=== PATIENT | male | born 1960 | race Caucasian/White ===

== ENCOUNTER 2019-01-04 11:07 | Emergency (ER) | payer MEDICAID ==
--- NOTE | 2019-01-04 11:19 | EDM.PDOC ---
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 (NEGATIVE) Urine RBC /HPF Urine WBC /HPF Ur Epithelial Cells /LPF Urine Bacteria (NONE TO FEW) /HPF 01/04/19 Range/Units 11:30 WBC (4.0-10.2) K/uL RBC (4.33-5.41) M/uL Hgb (13.1-16.8) g/dL Hct (39.0-49.0) % MCV (84.0-98.0) fL MCH (28.2-33.3) pg MCHC (31.7-36.0) g/dL RDW (11.2-14.1) % Plt Count (150-350) K/uL Neut % (Auto) (45.0-80.0) % Lymph % (Auto) (10.0-50.0) % Loving % (Auto) (2.0-14.0) % Eos % (Auto) (0.0-5.0) % Baso % (Auto) (0.0-2.0) % Neut # (Auto) (1.40-7.00) K/uL Lymph # (Auto) (0.50-3.50) K/uL Loving # (Auto) (0.00-1.00) K/uL Eos # (Auto) (0.00-0.50) K/uL Baso # (Auto) (0.00-0.20) K/uL PT (9.5-12.0) SEC INR APTT (21.0-31.3) SEC D-Dimer, Quantitative (0-400) ng/mL Sodium (136-145) mmol/L Potassium (3.5-5.1) mmol/L Chloride (98-107) mmol/L Carbon Dioxide (21.0-32.0) mmol/L BUN (7-18) mg/dL Creatinine (0.51-1.17) mg/dL Est Cr Clr Drug Dosing mL/min Estimated GFR (MDRD) mL/min Glucose (74-106) mg/dL Lactic Acid (0.4-2.0) mmol/L Uric Acid (2.6-7.2) mg/dL Calcium (8.5-10.1) mg/dL Magnesium (1.8-2.4) mg/dL Total Bilirubin 1.3 H (0.2-1.0) mg/dL Direct Bilirubin 0.2 (0.0-0.2) mg/dL Indirect Bilirubin 1.1 AST (15-37) U/L ALT (12-78) U/L Alkaline Phosphatase (46-116) IU/L Creatine Kinase (26-308) U/L Creatine Kinase Index (0.0-2.5) % CK-MB (CK-2) (0.00-3.60) ng/mL Troponin I (0.000-0.056) ng/mL NT-Pro-B Natriuret Pep (0-125) pg/mL Total Protein (6.4-8.2) g/dL Albumin (3.4-5.0) g/dL TSH, Ultra Sensitive (0.358-3.740) mIU/mL Specimen Type Urine Color Urine Appearance Urine pH (5.0-9.0) Ur Specific Douglas (1.005-1.030) Urine Protein (NEGATIVE) mg/dL Urine Glucose (UA) (NEGATIVE) mg/dL Urine Ketones (NEGATIVE) mg/dL Urine Occult Blood (NEGATIVE) Urine Nitrite (NEGATIVE) Urine Bilirubin (NEGATIVE) Urine Urobilinogen (0.2-1.0) E.U./dL Ur Leukocyte Esterase (NEGATIVE) Urine RBC /HPF Urine WBC /HPF Ur Epithelial Cells /LPF Urine Bacteria (NONE TO FEW) /HPF Urine specimen set up for culture and sensitivity Meds: Medications Generic Name Dose Route Start Last Admin Trade Name Ewa PRN Reason Stop Dose Admin Sodium Chloride 10 ml 01/04/19 11:20 01/04/19 13:24 Saline Flush FLUSH 10 ml ASDIRECTED PRN Administration Keep Vein Open Discontinued Medications Generic Name Dose Route Start Last Admin Trade Name Ewa PRN Reason Stop Dose Admin Al Hydroxide/Mg Hydroxide 30 ml 01/04/19 13:11 01/04/19 13:15 Gi Cocktail PO 01/04/19 13:12 30 ml ONETIME ONE Administration Aspirin 162 mg 01/04/19 11:56 01/04/19 12:19 Aspirin CHEW 01/04/19 11:57 162 mg ONETIME ONE Administration Famotidine 40 mg 01/04/19 11:20 01/04/19 11:37 Pepcid IVPUSH 01/04/19 11:21 40 mg ONETIME ONE Administration Fentanyl 100 mcg 01/04/19 13:21 01/04/19 13:25 Sublimaze IVPUSH 01/04/19 13:22 50 mcg ONETIME ONE Administration Iopamidol 100 ml 01/04/19 12:27 01/04/19 13:52 Isovue-300 (61%) IVPUSH 01/04/19 12:28 100 ml ONETIME ONE Administration Iopamidol Confirm 01/04/19 12:36 01/04/19 13:52 Isovue-300 (61%) Administered 01/04/19 12:37 100 ml Dose Administration 100 ml .ROUTE .STK-MED ONE Metoprolol Tartrate 2.5 mg 01/04/19 11:20 01/04/19 11:37 Lopressor IVPUSH 01/04/19 11:21 2.5 mg ONETIME ONE Administration Morphine Sulfate 2 mg 01/04/19 11:39 01/04/19 11:42 Morphine IVPUSH 01/04/19 11:40 2 mg ONETIME ONE Administration Morphine Sulfate 2 mg 01/04/19 12:24 01/04/19 12:29 Morphine IVPUSH 01/04/19 12:25 2 mg ONETIME ONE Administration Ondansetron HCl 4 mg 01/04/19 11:39 01/04/19 11:42 Zofran IVPUSH 01/04/19 11:40 4 mg ONETIME ONE Administration Ticagrelor 180 mg 01/04/19 11:56 01/04/19 12:19 Brilinta PO 01/04/19 11:57 180 mg ONETIME ONE Administration - Radiology Interpretation Free Text/Narrative:: personnel monitor shows initial normal sinus rhythm with heart rate in the 80s with improvement to the 70s to 80s after IV Lopressor therapy as below. Chest x-ray, portable, shows somewhat poor inspiratory film with moderate COPD changes but no cardiomegaly, thoracic aneurysm, pulmonary infiltrates or pneumothorax. Note mild aortic valve calcification and status post medial sternotomy with probable pulmonary hypertension and/or mild centralized CHF. Despite previous request a preliminary verbal report of CTA of the chest was not received from the radiologist at [facility]. Written report indicates no evidence of PE or thoracic aortic dissection. Departure - Departure Time of Disposition: 15:05 Disposition: DC/Tfer to Acute Hospital 02 Reason for Transfer *Q: Other (Cardiology consultation as below) Condition: Fair Clinical Impression: D-dimer, elevated, Hyperbilirubinemia, Mixed anxiety depressive disorder, Tobacco abuse counseling Gastroesophageal reflux disease Qualifiers: Esophagitis presence: without esophagitis Qualified Code(s): K21.9 - Gastro- esophageal reflux disease without esophagitis Chest pain Qualifiers: Chest pain type: unspecified Qualified Code(s): R07.9 - Chest pain, unspecified Osteoarthritis Qualifiers: Osteoarthritis location: multiple joints Osteoarthritis type: primary Qualified Code(s): M15.0 - Primary generalized (osteo)arthritis Aortic valve stenosis Qualifiers: Cardiac valve disease etiology: nonrheumatic Qualified Code(s): I35.0 - Nonrheumatic aortic (valve) stenosis Hypertension Qualifiers: Hypertension type: essential hypertension Qualified Code(s): I10 - Essential ( primary) hypertension Hyperlipidemia Qualifiers: Hyperlipidemia type: unspecified Qualified Code(s): E78.5 - Hyperlipidemia, unspecified COPD (chronic obstructive pulmonary disease) Qualifiers: COPD type: emphysema Emphysema type: panlobular Qualified Code(s): J43.1 - Panlobular emphysema Referrals: Peg Abdalla PA-C [Primary Care Provider] - Forms: ED Department Discharge, Interfacility Transfer EMTALA - Problem List & Annotations (1) Chest pain SNOMED Code(s): 04834520 Code(s): R07.9 - CHEST PAIN, UNSPECIFIED Status: Acute Priority: High Current Visit: Yes Onset Date: 01/03/19 Annotation/Comment:: Chest pain protocol initiated immediately upon patient's arrival to the emergency room. Patient initially said that he was on Coumadin, however our review of his records indicates that he is only on aspirin and Plavix. He did take 162 mg of aspirin this morning and his Plavix as above. He did require IV morphine for pain control with IV Zofran given as nausea prophylaxis. History of valvular disease and possible aortic dissection with CTA of the chest results as above. Note mild BNP elevation with patient previously having a history of this problem with otherwise normal cardiac enzymes and no clinical evidence of significant CHF. EKG 2 and cardiac enzymes are otherwise normal. Telephone consultation at 14:[address] Stokes, forest science professor, and Dr. Dillard, hospitalist, both at [facility] in [place], who did accept the patient for direct admission. No further treatment recommendations given. They are in agreement not to initiate IV nitroglycerin infusion or IV heparin at this time. Note aggressive medical therapy as above with improved somewhat unstable angina. Ambulance transfer with ultrasound specialist accompaniment. Qualifiers: Chest pain type: unspecified Qualified Code(s): R07.9 - Chest pain, unspecified (2) Aortic valve stenosis SNOMED Code(s): 93384745 Code(s): I35.0 - NONRHEUMATIC AORTIC (VALVE) STENOSIS Status: Chronic Priority: High Current Visit: Yes Annotation/Comment:: Status post porcine aortic valve replacement and possible concomitant proximal thoracic aortic aneurysm repair as above. Echocardiogram had been scheduled for earlier this morning, however patient did miss this appointment secondary to his current symptoms and ER evaluation. Qualifiers: Cardiac valve disease etiology: nonrheumatic Qualified Code(s): I35.0 - Nonrheumatic aortic (valve) stenosis (3) D-dimer, elevated SNOMED Code(s): 650626844 Code(s): R79.89 - OTHER SPECIFIED ABNORMAL FINDINGS OF BLOOD CHEMISTRY Status: Acute Priority: High Current Visit: Yes Onset Date: 01/04/19 Annotation/Comment:: Note previous history of d-dimer elevation with previous negative workup as above. CTA of the chest results today as above. (4) Gastroesophageal reflux disease SNOMED Code(s): 869519068 Code(s): K21.9 - GASTRO-ESOPHAGEAL REFLUX DISEASE WITHOUT ESOPHAGITIS Status: Chronic Priority: Medium Current Visit: Yes Annotation/Comment:: High-dose IV Pepcid given as GI prophylaxis. Additional GI cocktail was required with overall good results. Otherwise previously stable by history despite recent initiation of Toradol for left elbow bursitis on 01/03. Qualifiers: Esophagitis presence: without esophagitis Qualified Code(s): K21.9 - Gastro -esophageal reflux disease without esophagitis (5) Hyperbilirubinemia SNOMED Code(s): 77212642 Code(s): E80.6 - OTHER DISORDERS OF BILIRUBIN METABOLISM Status: Acute Priority: Medium Current Visit: Yes Onset Date: 01/04/19 Annotation/ Comment:: Note history of laparoscopic cholecystectomy as above. Direct and indirect bilirubin results were normal as above. (6) Hyperlipidemia SNOMED Code(s): 40787745 Code(s): E78.5 - HYPERLIPIDEMIA, UNSPECIFIED Status: Chronic Priority: Medium Current Visit: Yes Annotation/Comment:: Previous lipid panel in October with repeat lipid panel advisable. Qualifiers: Hyperlipidemia type: unspecified Qualified Code(s): E78.5 - Hyperlipidemia , unspecified (7) Hypertension SNOMED Code(s): 01830229 Code(s): I10 - ESSENTIAL (PRIMARY) HYPERTENSION Status: Chronic Priority : Medium Current Visit: Yes Annotation/Comment:: Overall stable in the emergency room with IV Lopressor given on his arrival as per chest pain protocol. Qualifiers: Hypertension type: essential hypertension Qualified Code(s): I10 - Essential (primary) hypertension (8) Mixed anxiety depressive disorder SNOMED Code(s): 153120030 Code(s): F41.8 - OTHER SPECIFIED ANXIETY DISORDERS Status: Chronic Priority: Medium Current Visit: Yes Annotation/Comment:: Mild to moderate control based on today's evaluation. No current medical therapy. Continue to observe closely by his regular provider. (9) Osteoarthritis SNOMED Code(s): 579524074 Code(s): M19.90 - UNSPECIFIED OSTEOARTHRITIS, UNSPECIFIED SITE Status: Chronic Priority: Medium Current Visit: Yes Annotation/Comment:: Recent left-sided olecranon bursitis with initiation of Toradol on 01/03. Qualifiers: Osteoarthritis location: multiple joints Osteoarthritis type: primary Qualified Code(s): M15.0 - Primary generalized (osteo)arthritis (10) Tobacco abuse counseling SNOMED Code(s): 395653223, 437724689, 002833954 Code(s): Z71.6 - TOBACCO ABUSE COUNSELING Status: Chronic Priority: Medium Current Visit: Yes Annotation/Comment:: Tobacco cessation strongly encouraged with information to be provided at discharge. (11) COPD (chronic obstructive pulmonary disease) SNOMED Code(s): 51997691 Code(s): J44.9 - CHRONIC OBSTRUCTIVE PULMONARY DISEASE, UNSPECIFIED Status : Chronic Current Visit: Yes Annotation/Comment:: COPD by chest x-ray. Consider repeating PFTs depending on his clinical course. Tobacco cessation advisable as above. Qualifiers: COPD type: emphysema Emphysema type: panlobular Qualified Code(s): J43.1 - Panlobular emphysema - Problem List Review Problem List Initiated/Reviewed/Updated: Yes - My Orders Last 24 Hours: My Active Orders 01/04/19 11:20 Cardiac Monitoring [RC] . DIRECTED EKG Documentation Completion [RC] ASDIRECTED Oxygen Therapy, ED [RC] CONTINUOUS Peripheral IV Care [RC] . DIRECTED Pulse Oximetry [RC] CONTINUOUS Up With Assistance [RC] PFP Vital Signs [RC] PFP Chest 1V Frontal [CR] Stat CULTURE URINE [RM] Routine Sodium Chloride 0.9% [Saline Flush] 10 ml FLUSH ASDIRECTED PRN Obtain Past Medical Record [OM.PC] Urgent Peripheral IV Insertion Adult [OM.PC] Stat Resuscitation Status Stat 01/04/19 12:23 Chest PE [Ang Chest] [CT] Stat 01/04/19 13:03 EKG Documentation Completion [RC] ASDIRECTED 01/04/19 Breakfast Nothing per Oral Now Diet [DIET] - Assessment/Plan Last 24 Hours: My Active Orders 01/04/19 11:20 Cardiac Monitoring [RC] . DIRECTED EKG Documentation Completion [RC] ASDIRECTED Oxygen Therapy, ED [RC] CONTINUOUS Peripheral IV Care [RC] . DIRECTED Pulse Oximetry [RC] CONTINUOUS Up With Assistance [RC] PFP Vital Signs [RC] PFP Chest 1V Frontal [CR] Stat CULTURE URINE [RM] Routine Sodium Chloride 0.9% [Saline Flush] 10 ml FLUSH ASDIRECTED PRN Obtain Past Medical Record [OM.PC] Urgent Peripheral IV Insertion Adult [OM.PC] Stat Resuscitation Status Stat 01/04/19 12:23 Chest PE [Ang Chest] [CT] Stat 01/04/19 13:03 EKG Documentation Completion [RC] ASDIRECTED 01/04/19 Breakfast Nothing per Oral Now Diet [DIET] Assessment:: As above Plan: As above. Extensive precautions were given to the patient, who is in agreement with the treatment plan. NOTE: The patient was previously registered under a false name of MELODIE SEWELL , [birth year]GE 10/22/1958, both at [facility] and [facility] with those records also reviewed today.
[2019-01-04] MEDS ORDERED: Sodium Chloride 0.9% 10 ML Syringe FLUSH PRN (11:20)
[2019-01-04] MEDS ORDERED: Metoprolol Tartrate 5 MG/5 ML SDV IVPUSH ONE (11:20)
[2019-01-04] MEDS ORDERED: Famotidine 20 MG/2 ML SDV IVPUSH ONE (11:20)
[2019-01-04] MEDS ORDERED: Morphine 2 MG/ML Syringe IVPUSH ONE ×2 (11:39→12:24)
[2019-01-04] MEDS ORDERED: Ondansetron 4 MG/2 ML SDV IVPUSH ONE (11:39)
[2019-01-04] MEDS ORDERED: Aspirin 81 MG Tab.Chew CHEW ONE (11:56)
[2019-01-04] MEDS ORDERED: Ticagrelor 90 MG Tab PO ONE (11:56)
[2019-01-04 12:07] LABS: CHLORIDE,CL 100 mmol/L (98-107); SODIUM,NA 137 mmol/L (136-145)
[2019-01-04] MEDS ORDERED: Iopamidol 612 MG/ML 100 ML Bottle IVPUSH ONE (12:27)
[2019-01-04] MEDS ORDERED: Iopamidol 612 MG/ML 100 ML Bottle ONE (12:36)
[2019-01-04] MEDS ORDERED: GI Cocktail Oral Solution 30 ML PO ONE (13:11)
[2019-01-04] MEDS ORDERED: fentaNYL 100 MCG/2 ML SDV IVPUSH ONE (13:21)
== END 2019-01-04 15:05 ==
LOC: LL.ED 11:07
DX: I35.0 Nonrheumatic aortic (valve) stenosis (principal); R79.1 Abnormal coagulation profile; E80.6 Other disorders of bilirubin metabolism; F41.8 Other specified anxiety disorders; K21.9 Gastro-esophageal reflux disease without esophagitis; M15.0 Primary generalized (osteo)arthritis; E78.5 Hyperlipidemia, unspecified; J43.1 Panlobular emphysema; I10 Essential (primary) hypertension; F17.210 Nicotine dependence, cigarettes, uncomplicated; Z88.8 Allergy status to other drugs, medicaments and biological substances; Z88.0 Allergy status to penicillin; Z71.6 Tobacco abuse counseling
CPT/HCPCS: 36415; 71045; 71275; 80053; 81001; 82247; 82248; 82550; 82553; 83605; 83735; 83880; 84443; 84484; 84550; 85025; 85379; 85610; 85730; 87086; 93005; 96374; 96375; 96376; 99285-25; A9270-GY; J2270; J2405; J3010; J3490; Q9967

== ENCOUNTER 2019-01-11 14:27 | Emergency (ER) | payer MEDICAID ==
[2019-01-11] MEDS ORDERED: Famotidine 20 MG/2 ML SDV IVPUSH ONE (14:39)
[2019-01-11] MEDS ORDERED: Ticagrelor 90 MG Tab PO ONE (14:39)
[2019-01-11] MEDS ORDERED: Aspirin 81 MG Tab.Chew CHEW ONE (14:39)
[2019-01-11] MEDS ORDERED: Metoprolol Tartrate 5 MG/5 ML SDV IVPUSH ONE (14:39)
--- NOTE | 2019-01-11 14:39 | EDM.PDOC ---
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 Route Start Last Admin Trade Name Freq PRN Reason Stop Dose Admin Sodium Chloride 10 ml 01/11/19 14:39 01/11/19 15:13 Saline Flush FLUSH 10 ml ASDIRECTED PRN Administration Keep Vein Open Discontinued Medications Generic Name Dose Route Start Last Admin Trade Name Freq PRN Reason Stop Dose Admin Aspirin 324 mg 01/11/19 14:39 01/11/19 14:44 Aspirin CHEW 01/11/19 14:40 324 mg ONETIME ONE Administration Famotidine 40 mg 01/11/19 14:39 01/11/19 14:47 Pepcid IVPUSH 01/11/19 14:40 40 mg ONETIME ONE Administration Fentanyl 100 mcg 01/11/19 16:30 01/11/19 16:37 Sublimaze IVPUSH 01/11/19 16:31 100 mcg ONETIME ONE Administration Metoprolol Tartrate 2.5 mg 01/11/19 14:39 01/11/19 14:46 Lopressor IVPUSH 01/11/19 14:40 2.5 mg ONETIME ONE Administration Morphine Sulfate 2 mg 01/11/19 15:08 01/11/19 15:11 Morphine IVPUSH 01/11/19 15:09 2 mg ONETIME ONE Administration Ondansetron HCl 4 mg 01/11/19 15:08 01/11/19 15:11 Zofran IVPUSH 01/11/19 15:09 4 mg ONETIME ONE Administration Ticagrelor 180 mg 01/11/19 14:39 01/11/19 14:45 Brilinta PO 01/11/19 14:40 180 mg ONETIME ONE Administration - Radiology Interpretation Free Text/Narrative:: teller head showed initial sinus rhythm in the 80s with improvement to 60s to 70s after IV Lopressor was given. No ectopy or arrhythmia. Chest x-ray, portable, shows evidence of moderate COPD changes with status post medial sternotomy with mild calcification of his prosthetic aortic valve. Mild borderline pulmonary hypertension versus borderline centralized CHF with no pneumothorax or pulmonary infiltrates. Telephone consultation at 15:27 hours with the radiology department at [facility]. Preliminary verbal report of noncontrast CT scan of the head negative for any acute ischemic changes. CT Results Date: 01/11/19 CT Results Time: 15:27 Departure - Departure Time of Disposition: 17:40 Disposition: DC/Tfer to Acute Hospital 02 Reason for Transfer *Q: Other (Cardiology consultation on arrival) Condition: Fair Clinical Impression: Mixed anxiety depressive disorder, D-dimer, elevated, Tobacco abuse counseling COPD (chronic obstructive pulmonary disease) Qualifiers: COPD type: emphysema Emphysema type: panlobular Qualified Code(s): J43.1 - Panlobular emphysema Hypertension Qualifiers: Hypertension type: essential hypertension Qualified Code(s): I10 - Essential ( primary) hypertension Chest pain Qualifiers: Chest pain type: unspecified Qualified Code(s): R07.9 - Chest pain, unspecified Osteoarthritis Qualifiers: Osteoarthritis location: multiple joints Osteoarthritis type: primary Qualified Code(s): M15.0 - Primary generalized (osteo)arthritis Gastroesophageal reflux disease Qualifiers: Esophagitis presence: without esophagitis Qualified Code(s): K21.9 - Gastro- esophageal reflux disease without esophagitis Syncope Qualifiers: Syncope type: unspecified Qualified Code(s): R55 - Syncope and collapse Migraine headache Qualifiers: Migraine type: without aura Status migrainosus presence: without status migrainosus Intractability: not intractable Qualified Code(s): G43.009 - Migraine without aura, not intractable, without status migrainosus Instructions: Syncope, [id number] Referrals: Peg Abdalla PA-C [Primary Care Provider] - Forms: ED Department Discharge, Interfacility Transfer EMTALA - Problem List & Annotations (1) Chest pain SNOMED Code(s): 16651825 Code(s): R07.9 - CHEST PAIN, UNSPECIFIED Status: Acute Priority: High Current Visit: Yes Onset Date: 01/03/19 Annotation/Comment:: Chest pain protocol initiated immediately upon patient's arrival to the emergency room. Note patient was evaluated in this facility for similar type symptoms on with subsequent transfer to [facility] with cardiac workup as above. Patient did refuse recommended Cardiolite stress test at that time. He did require IV morphine and IV fentanyl for pain control with IV Zofran given as nausea prophylaxis. History of valvular disease and severe aortic valve stenosis and porcine aortic valve replacement as above with mild to moderate perivalvular insufficiency noted by recent echocardiogram on 01/04. Note stable mild BNP elevation with patient previously having a history of this problem with otherwise normal cardiac enzymes, EKG, etc. and no clinical evidence of significant CHF. Initial telephone consultation with [facility] in [place] at 16:10 hours with subsequent additional telephone consultation with Dr. Dillard, hospitalist, who does accept patient for direct admission and further cardiology and/or neurology consultation, with no further treatment recommendations given. Ambulance transfer with interpretative dancer accompaniment. Patient now does agree to recommended Cardiolite stress test. Qualifiers: Chest pain type: unspecified Qualified Code(s): R07.9 - Chest pain, unspecified (2) Syncope SNOMED Code(s): 940137851 Code(s): R55 - SYNCOPE AND COLLAPSE Status: Acute Priority: High Current Visit: Yes Onset Date: 01/11/19 Annotation/Comment:: History of recurrent syncope as above. Negative neurological findings and CT of the head results from today. Cardiology consultation/workup is advisable as above with possible further neurology consultation for tilt table test, EEG, etc. No direct evidence of seizure activity today with prolactin level drawn with results pending. Qualifiers: Syncope type: unspecified Qualified Code(s): R55 - Syncope and collapse (3) Gastroesophageal reflux disease SNOMED Code(s): 840555126 Code(s): K21.9 - GASTRO-ESOPHAGEAL REFLUX DISEASE WITHOUT ESOPHAGITIS Status: Chronic Priority: Medium Current Visit: Yes Annotation/Comment:: High-dose IV Pepcid given as GI prophylaxis. No recent true abdominal pain or GI type symptoms. Continue to observe closely by his regular provider. Qualifiers: Esophagitis presence: without esophagitis Qualified Code(s): K21.9 - Gastro -esophageal reflux disease without esophagitis (4) D-dimer, elevated SNOMED Code(s): 551547875 Code(s): R79.89 - OTHER SPECIFIED ABNORMAL FINDINGS OF BLOOD CHEMISTRY Status: Acute Priority: High Current Visit: Yes Onset Date: 01/04/19 Annotation/Comment:: Note previous history of d-dimer elevation with previous negative workup as above. CTA of the chest results from 01/04/19 were once again reviewed with negative findings for PE or aortic valve dissection. Consider venous Doppler studies of the lower extremities. (5) Osteoarthritis SNOMED Code(s): 982148623 Code(s): M19.90 - UNSPECIFIED OSTEOARTHRITIS, UNSPECIFIED SITE Status: Chronic Priority: Medium Current Visit: Yes Annotation/Comment:: Recent left-sided olecranon bursitis with initiation of Toradol on 01/03 with nonspecific chronic bilateral shoulder pain, etc. Qualifiers: Osteoarthritis location: multiple joints Osteoarthritis type: primary Qualified Code(s): M15.0 - Primary generalized (osteo)arthritis (6) Mixed anxiety depressive disorder SNOMED Code(s): 519500236 Code(s): F41.8 - OTHER SPECIFIED ANXIETY DISORDERS Status: Chronic Priority: Medium Current Visit: Yes Annotation/Comment:: Mild to moderate control based on today's evaluation. No current medical therapy. Continue to observe closely by his regular provider. Medical therapy, counseling, may be advised. (7) Hypertension SNOMED Code(s): 42473995 Code(s): I10 - ESSENTIAL (PRIMARY) HYPERTENSION Status: Chronic Priority : Medium Current Visit: Yes Annotation/Comment:: Overall stable in the emergency room with IV Lopressor given on his arrival as per chest pain protocol. Qualifiers: Hypertension type: essential hypertension Qualified Code(s): I10 - Essential (primary) hypertension (8) Tobacco abuse counseling SNOMED Code(s): 282230472, 389786222, 603102333 Code(s): Z71.6 - TOBACCO ABUSE COUNSELING Status: Chronic Priority: Medium Current Visit: Yes Annotation/Comment:: Tobacco cessation once again strongly encouraged with information to be provided at discharge. (9) Aortic valve stenosis SNOMED Code(s): 79029546 Code(s): I35.0 - NONRHEUMATIC AORTIC (VALVE) STENOSIS Status: Chronic Priority: High Current Visit: Yes Annotation/Comment:: As above with recent echocardiogram on 01/04/19 dictating perivalvular insufficiency.. Status post porcine aortic valve replacement and possible concomitant proximal thoracic aortic aneurysm repair as above. Qualifiers: Cardiac valve disease etiology: nonrheumatic Qualified Code(s): I35.0 - Nonrheumatic aortic (valve) stenosis (10) COPD (chronic obstructive pulmonary disease) SNOMED Code(s): 76613178 Code(s): J44.9 - CHRONIC OBSTRUCTIVE PULMONARY DISEASE, UNSPECIFIED Status : Chronic Current Visit: Yes Annotation/Comment:: COPD by chest x-ray. Consider repeating PFTs depending on his clinical course. Tobacco cessation advisable as above. Qualifiers: COPD type: emphysema Emphysema type: panlobular Qualified Code(s): J43.1 - Panlobular emphysema - Problem List Review Problem List Initiated/Reviewed/Updated: Yes - My Orders Last 24 Hours: My Active Orders 01/11/19 14:39 Cardiac Monitoring [RC] . DIRECTED EKG Documentation Completion [RC] ASDIRECTED Oxygen Therapy, ED [RC] PRN Peripheral IV Care [RC] . DIRECTED Pulse Oximetry [RC] CONTINUOUS Up With Assistance [RC] PFP Vital Signs [RC] PFP Chest 1V Frontal [CR] Stat Sodium Chloride 0.9% [Saline Flush] 10 ml FLUSH ASDIRECTED PRN Obtain Past Medical Record [OM.PC] Urgent Peripheral IV Insertion Adult [OM.PC] Stat Resuscitation Status Stat 01/11/19 14:46 PROLACTIN [REF] Stat 01/11/19 14:50 Head wo Cont [CT] Stat 01/11/19 16:15 CULTURE URINE [RM] Routine 01/11/19 Breakfast Nothing per Oral Now Diet [DIET] - Assessment/Plan Last 24 Hours: My Active Orders 01/11/19 14:39 Cardiac Monitoring [RC] . DIRECTED EKG Documentation Completion [RC] ASDIRECTED Oxygen Therapy, ED [RC] PRN Peripheral IV Care [RC] . DIRECTED Pulse Oximetry [RC] CONTINUOUS Up With Assistance [RC] PFP Vital Signs [RC] PFP Chest 1V Frontal [CR] Stat Sodium Chloride 0.9% [Saline Flush] 10 ml FLUSH ASDIRECTED PRN Obtain Past Medical Record [OM.PC] Urgent Peripheral IV Insertion Adult [OM.PC] Stat Resuscitation Status Stat 01/11/19 14:46 PROLACTIN [REF] Stat 01/11/19 14:50 Head wo Cont [CT] Stat 01/11/19 16:15 CULTURE URINE [RM] Routine 01/11/19 Breakfast Nothing per Oral Now Diet [DIET] Assessment:: As above. Plan: As above. Ambulance transfer as above.
[2019-01-11] MEDS: Sodium Chloride 0.9% 10 ML Syringe FLUSH PRN ×4 (14:48→15:13)
[2019-01-11] MEDS ORDERED: Morphine 2 MG/ML Syringe IVPUSH ONE (15:08)
[2019-01-11] MEDS ORDERED: Ondansetron 4 MG/2 ML SDV IVPUSH ONE (15:08)
[2019-01-11 16:04] LABS: CHLORIDE,CL 97 mmol/L (98-107); SODIUM,NA 133 mmol/L (136-145)
[2019-01-11] MEDS ORDERED: fentaNYL 100 MCG/2 ML SDV IVPUSH ONE (16:30)
== END 2019-01-11 17:40 ==
LOC: LL.ED 14:27
DX: R55 Syncope and collapse (principal); G43.009 Migraine without aura, not intractable, without status migrainosus; R07.9 Chest pain, unspecified; M15.0 Primary generalized (osteo)arthritis; K21.9 Gastro-esophageal reflux disease without esophagitis; F41.8 Other specified anxiety disorders; R79.1 Abnormal coagulation profile; J43.1 Panlobular emphysema; Z71.6 Tobacco abuse counseling; I10 Essential (primary) hypertension; F17.210 Nicotine dependence, cigarettes, uncomplicated; Z88.0 Allergy status to penicillin; Z88.6 Allergy status to analgesic agent; Z88.8 Allergy status to other drugs, medicaments and biological substances; Z79.82 Long term (current) use of aspirin; Z79.899 Other long term (current) drug therapy
CPT/HCPCS: 36415; 70450; 71045; 80053; 81001; 82550; 82553; 83605; 83735; 83880; 84146; 84443; 84484; 84550; 85025; 85379; 85610; 85730; 87086; 93005; 96374; 96375; 99285-25; A9270-GY; J2270; J2405; J3010; J3490

== ENCOUNTER 2019-01-20 14:19 | Emergency (ER) | payer MEDICAID ==
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
== END 2019-01-20 15:35 | disposition home or self-care (01) ==
LOC: LL.ED 14:19
DX: R07.89 Other chest pain (principal); J44.9 Chronic obstructive pulmonary disease, unspecified; Z88.0 Allergy status to penicillin; Z88.8 Allergy status to other drugs, medicaments and biological substances; Z79.82 Long term (current) use of aspirin; Z79.899 Other long term (current) drug therapy
CPT/HCPCS: 99284

== ENCOUNTER 2019-12-18 17:15 | Inpatient (IN) | payer MEDICAID ==
[2019-12-18] MEDS ORDERED: Sodium Chloride 0.9% 10 ML Syringe FLUSH PRN (17:24)
--- NOTE | 2019-12-18 17:24 | EDM.PDOC ---
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 Departure - Departure Time of Disposition: 20:05 Disposition: Admitted As Inpatient 66 Condition: Fair Clinical Impression: COPD (chronic obstructive pulmonary disease), Gastroesophageal reflux disease, Hypertension, Osteoarthritis, Tobacco abuse counseling, Mixed anxiety depressive disorder, Hyperlipidemia, D-dimer, elevated, Chest pain, Complete left bundle branch block (LBBB), PVC's (premature ventricular contractions), Hypokalemia, CHF (congestive heart failure) - Discharge Information *PRESCRIPTION DRUG MONITORING PROGRAM REVIEWED*: Not Applicable *COPY OF PRESCRIPTION DRUG MONITORING REPORT IN PATIENT YANELY: Not Applicable Referrals: PCP,Unknown [Primary Care Provider] - Forms: ED Department Discharge Care Plan Goals: See plan Sepsis Event Note - Focused Exam Vital Signs: Vital Signs Temp Pulse Resp BP Pulse Ox Pulse Ox 12/18/19 18:47 91 22 H 98 12/18/19 18:38 88 18 124/88 98 12/18/19 18:17 90 21 H 129/72 99 12/18/19 17:53 94 25 H 127/78 98 12/18/19 17:40 37.0 C 97 23 H 148/77 H 98 12/18/19 17:24 99 12/18/19 17:17 98 24 H 147/77 H 98 Date Exam was Performed: 12/18/19 Time Exam was Performed: 20:26 - Problem List & Annotations (1) Chest pain SNOMED Code(s): 74720686 Code(s): R07.9 - CHEST PAIN, UNSPECIFIED Status: Acute Priority: High Current Visit: Yes Onset Date: 12/18/19 Annotation/Comment:: Chest pain protocol initiated upon patient's arrival to the emergency room. Note patient was evaluated in this facility for similar type symptoms on 01/11/19 and 01/04/19 with subsequent transfer to [facility] with cardiac workup as above. Patient did refuse recommended Cardiolite stress test at those times. History of valvular disease and severe aortic valve stenosis and porcine aortic valve replacement as above with mild to moderate perivalvular insufficiency noted by recent echocardiogram on 01/04. Note mild BNP elevation and clinical evidence of mild CHF with IV Lasix therapy initiated in the emergency room. Note recent echocardiogram on 12/14/19. Initiate standard rule out [place] orders with further cardiology consultation depending on his clinical course. Symptoms today are somewhat atypical, however. Qualifiers: Chest pain type: unspecified Qualified Code(s): R07.9 - Chest pain, unspecified (2) CHF (congestive heart failure) SNOMED Code(s): 08967443 Code(s): I50.9 - HEART FAILURE, UNSPECIFIED Status: Acute Priority: High Current Visit: Yes Annotation/Comment:: As above Qualifiers: Heart failure type: combined systolic and diastolic Heart failure chronicity: acute on chronic Qualified Code(s): I50.43 - Acute on chronic combined systolic (congestive) and diastolic (congestive) heart failure (3) D-dimer, elevated SNOMED Code(s): 079631362 Code(s): R79.89 - OTHER SPECIFIED ABNORMAL FINDINGS OF BLOOD CHEMISTRY Status: Acute Priority: High Current Visit: Yes Onset Date: 01/04/19 Annotation/Comment:: Known previous d-dimer elevation with negative workup as above. Repeat venous Doppler studies in the a.m.. Observe for now. (4) COPD (chronic obstructive pulmonary disease) SNOMED Code(s): 88230946 Code(s): J44.9 - CHRONIC OBSTRUCTIVE PULMONARY DISEASE, UNSPECIFIED Status : Chronic Current Visit: Yes Annotation/Comment:: COPD by chest x-ray with nonproductive cough and hemoptysis as above. No fever or leukocytosis. Delay initiation of antibiotic therapy for now. Consider repeating PFTs depending on his clinical course. Tobacco cessation advisable as above. Qualifiers: COPD type: emphysema Emphysema type: panlobular Qualified Code(s): J43.1 - Panlobular emphysema (5) Gastroesophageal reflux disease SNOMED Code(s): 256687664 Code(s): K21.9 - GASTRO-ESOPHAGEAL REFLUX DISEASE WITHOUT ESOPHAGITIS Status: Chronic Priority: Medium Current Visit: Yes Annotation/Comment:: High-dose IV Pepcid given as GI prophylaxis. No evidence of GI bleed, etc. Qualifiers: Esophagitis presence: without esophagitis Qualified Code(s): K21.9 - Gastro -esophageal reflux disease without esophagitis (6) Hyperlipidemia SNOMED Code(s): 18595003 Code(s): E78.5 - HYPERLIPIDEMIA, UNSPECIFIED Status: Chronic Priority: Medium Current Visit: Yes Annotation/Comment:: Lipid profile and glycosylated hemoglobin to be conducted in the a.m. Note history of fatty liver. Weight in moderation advisable. Qualifiers: Hyperlipidemia type: unspecified Qualified Code(s): E78.5 - Hyperlipidemia , unspecified (7) Hypertension SNOMED Code(s): 04299990 Code(s): I10 - ESSENTIAL (PRIMARY) HYPERTENSION Status: Chronic Priority : Medium Current Visit: Yes Annotation/Comment:: Overall stable in the emergency room with IV Lopressor given on his arrival as per chest pain protocol. Qualifiers: Hypertension type: essential hypertension Qualified Code(s): I10 - Essential (primary) hypertension (8) Mixed anxiety depressive disorder SNOMED Code(s): 286503680 Code(s): F41.8 - OTHER SPECIFIED ANXIETY DISORDERS Status: Chronic Priority: Medium Current Visit: Yes Annotation/Comment:: Moderate control based on today's evaluation. No current medical therapy. Continue to observe closely by his regular provider. Medical therapy, counseling, may be advised. (9) Osteoarthritis SNOMED Code(s): 169372276 Code(s): M19.90 - UNSPECIFIED OSTEOARTHRITIS, UNSPECIFIED SITE Status: Chronic Priority: Medium Current Visit: Yes Annotation/Comment:: Stable by history. Qualifiers: Osteoarthritis location: multiple joints Osteoarthritis type: primary Qualified Code(s): M15.0 - Primary generalized (osteo)arthritis (10) Tobacco abuse counseling SNOMED Code(s): 065603467, 062217077, 851700397 Code(s): Z71.6 - TOBACCO ABUSE COUNSELING Status: Chronic Priority: Medium Current Visit: Yes Annotation/Comment:: Tobacco cessation once again strongly encouraged with information to be provided at discharge. (11) Complete left bundle branch block (LBBB) SNOMED Code(s): 6132828 Code(s): I44.7 - LEFT BUNDLE-BRANCH BLOCK, UNSPECIFIED Status: Chronic Priority: Medium Current Visit: Yes Annotation/Comment:: Observe for now. (12) Hypokalemia SNOMED Code(s): 15706449 Code(s): E87.6 - HYPOKALEMIA Status: Acute Priority: Medium Current Visit: Yes Onset Date: 12/18/19 Annotation/Comment:: Potassium chloride orally initiated in the emergency room (13) PVC's (premature ventricular contractions) SNOMED Code(s): 10094400 Code(s): I49.3 - VENTRICULAR PREMATURE DEPOLARIZATION Status: Acute Priority: High Current Visit: Yes Onset Date: 12/18/19 Annotation/Comment: : Note recent event monitor on 11/24/19 with results pending. Observe for now. - Problem List Review Problem List Initiated/Reviewed/Updated: Yes - My Orders Last 24 Hours: My Active Orders 12/18/19 17:24 Cardiac Monitoring [RC] CONTINUOUS Communication Order [RC] ROUTINE Oxygen Therapy, ED [RC] CONTINUOUS Pulse Oximetry [RC] PRN Up With Assistance [RC] ASDIRECTED Chest 2V [CR] Stat CULTURE SPUTUM + SMEAR [RM] Urgent Sodium Chloride 0.9% [Saline Flush] 10 ml FLUSH ASDIRECTED PRN Blood Culture x2 Reflex Set [OM.PC] Stat Obtain Past Medical Record [OM.PC] Stat Peripheral IV Insertion Adult [OM.PC] Stat Resuscitation Status Routine 12/18/19 17:25 EKG Documentation Completion [RC] ASDIRECTED Peripheral IV Care [RC] . DIRECTED 12/18/19 17:30 CULTURE STREP A CONFIRMATION [RM] Stat STREP SCRN A RAPID W CULT CONF [RM] Stat 12/18/19 17:43 CULTURE BLOOD [BC] Stat 12/18/19 18:20 CULTURE BLOOD [BC] Stat 12/18/19 Breakfast Nothing Per Oral Diet [DIET] - Assessment/Plan Admission H&P: Please use this note as an admission H&P Last 24 Hours: My Active Orders 12/18/19 17:24 Cardiac Monitoring [RC] CONTINUOUS Communication Order [RC] ROUTINE Oxygen Therapy, ED [RC] CONTINUOUS Pulse Oximetry [RC] PRN Up With Assistance [RC] ASDIRECTED Chest 2V [CR] Stat CULTURE SPUTUM + SMEAR [RM] Urgent Sodium Chloride 0.9% [Saline Flush] 10 ml FLUSH ASDIRECTED PRN Blood Culture x2 Reflex Set [OM.PC] Stat Obtain Past Medical Record [OM.PC] Stat Peripheral IV Insertion Adult [OM.PC] Stat Resuscitation Status Routine 12/18/19 17:25 EKG Documentation Completion [RC] ASDIRECTED Peripheral IV Care [RC] . DIRECTED 12/18/19 17:30 CULTURE STREP A CONFIRMATION [RM] Stat STREP SCRN A RAPID W CULT CONF [RM] Stat 12/18/19 17:43 CULTURE BLOOD [BC] Stat 12/18/19 18:20 CULTURE BLOOD [BC] Stat 12/18/19 Breakfast Nothing Per Oral Diet [DIET] Assessment:: As above Plan: As above. Extensive precautions were given to the patient, who is in agreement with the treatment plan. The patient will require about 3-4 days of inpatient/ acute care secondary to multiple health problems as above. board certified behavioral analyst physician assumes care in the a.m.
[2019-12-18 18:27] LABS: CHLORIDE,CL 103 mmol/L (98-107); SODIUM,NA 138 mmol/L (136-145)
[2019-12-18] MEDS ORDERED: Famotidine 20 MG/2 ML SDV IVPUSH ONE (18:38)
[2019-12-18] MEDS ORDERED: Aspirin 81 MG Tab.Chew CHEW ONE (18:39)
[2019-12-18] MEDS ORDERED: Furosemide 40 MG/4 ML VIAL IVPUSH ONE (18:39)
[2019-12-18] MEDS ORDERED: Ticagrelor 90 MG Tab PO ONE (18:39)
[2019-12-18] MEDS ORDERED: Potassium Chloride 20 MEQ Tab.ER PO ONE (18:40)
[2019-12-18 18:42] LABS: PTT,PARTIAL THROMBOPLSTIN TIME 24.6 SEC (21.0-31.3)
[2019-12-18] MEDS ORDERED: Famotidine 20 MG/2 ML SDV ONE (18:46)
[2019-12-18] MEDS ORDERED: Temazepam 15 MG Cap PO PRN (21:52)
[2019-12-18] MEDS ORDERED: Acetaminophen 325 MG Tab PO PRN (21:52)
[2019-12-18] MEDS: Enoxaparin 40 MG/0.4 ML Syringe SUBCUT SCH (23:52)
[2019-12-19] MEDS: Furosemide 40 MG/4 ML VIAL IVPUSH SCH ×2 (03:53→12:40)
[2019-12-19] MEDS: Sodium Chloride 0.9% 10 ML Syringe FLUSH PRN ×2 (03:57→21:30)
[2019-12-19] MEDS ORDERED: Diphtheria,Pertussis(Acell),Tetanus Vaccine 0.5 ML SDV IM ONE ×2 (04:08→11:00)
[2019-12-19] MEDS: Metoprolol Tartrate 50 MG Tab PO SCH ×2 (07:12→21:26)
[2019-12-19] MEDS: Lisinopril 20 MG Tab PO SCH (07:12)
[2019-12-19] MEDS: Clopidogrel 75 MG Tab PO SCH (07:12)
[2019-12-19] MEDS: Aspirin 325 MG Tab.EC PO SCH (07:12)
[2019-12-19] MEDS: Potassium Chloride 20 MEQ Tab.ER PO SCH ×3 (07:13→21:25)
[2019-12-19 08:12] LABS: HEMOGLOBIN A1C 5.7 % (4.3-5.7)
[2019-12-19 08:14] LABS: CHLORIDE,CL 102 mmol/L (98-107); SODIUM,NA 139 mmol/L (136-145)
--- NOTE | 2019-12-19 14:00 | PCM.DCSUM1 ---
Discharge Summary - Hospital Course Free Text/Narrative:: Pt admitted with intermittent chronic chest pain See H and P Brief History: Pt work up has been negative See Lab and Xray report to include US Diagnosis: Stroke: No - Discharge Data Discharge Date: 12/19/19 Discharge Disposition: Home, Self-Care 01 Condition: Good - Referral to Home Health Primary Care Physician: PCP Unknown - Discharge Diagnosis/Problem(s) (1) Chest pain SNOMED Code(s): 17362732 ICD Code: R07.9 - CHEST PAIN, UNSPECIFIED Status: Acute Priority: High Current Visit: Yes Onset Date: 12/18/19 Problem Details: Pt had normal Venous Doppler Remained of lab and xray unremarkable Qualifiers: Chest pain type: unspecified Qualified Code(s): R07.9 - Chest pain, unspecified - Patient Instructions Diet: Regular Diet as Tolerated Activity: As Tolerated Driving: May Drive Today Showering/Bathing: May Shower Notify Provider of: Increased Pain Other/Special Instructions: Follow up with clinic provider for recheck in 3 to 5 days for repeat evaluation and repeat lab - Discharge Plan *PRESCRIPTION DRUG MONITORING PROGRAM REVIEWED*: Not Applicable *COPY OF PRESCRIPTION DRUG MONITORING REPORT IN PATIENT YANELY: Not Applicable Home Medications: Home Meds Clopidogrel [Plavix] 1 tab PO DAILY 01/04/19 [History] lisinopriL [Prinivil] 1 tab PO DAILY 01/04/19 [History] Metoprolol Tartrate [Lopressor] 50 mg PO BID 01/11/19 [History] Aspirin [Ecotrin EC] 325 mg PO DAILY 12/18/19 [History] Oxygen Therapy Mode: Room Air Forms: ED Department Discharge Referrals: PCP,Unknown [Primary Care Provider] - - Discharge Summary/Plan Comment DC Time >30 min.: No - General Info Date of Service: 12/19/19 Admission Dx/Problem (Free Text: chest pain Subjective Update: Pt without specific complaint this AM - Review of Systems HEENT: Reports: No Symptoms Pulmonary: Reports: No Symptoms Cardiovascular: Reports: Chest Pain Gastrointestinal: Reports: No Symptoms Genitourinary: Reports: No Symptoms Musculoskeletal: Reports: No Symptoms Neurological: Reports: No Symptoms - Patient Data Vitals - Most Recent: Last Vital Signs Temp 97.3 F 12/19/19 08:00 Pulse 95 12/19/19 08:00 Resp 17 12/19/19 08:00 BP 131/79 03/02/20 08:00 Pulse Ox 100 12/19/19 08:00 Weight - Most Recent: 210 lb 9.6 oz I&O - Last 24 hours: Intake & Output 12/19/19 12/19/19 12/19/19 02:59 10:59 18:59 Intake Total 200 240 Output Total 1500 Balance -1300 240 Lab Results - Last 24 hrs: Laboratory Results - last 24 hr 12/18/19 12/18/19 12/18/19 Range/Units 17:43 17:43 17:43 WBC 7.2 (4.0-10.2) K/uL RBC 4.61 (4.33-5.41) M/uL Hgb 14.4 D (13.1-16.8) g/dL Hct 41.3 (39.0-49.0) % MCV 89.6 (84.0-98.0) fL MCH 31.2 (28.2-33.3) pg MCHC 34.9 (31.7-36.0) g/dL RDW 12.5 (11.2-14.1) % Plt Count 181 (150-350) K/uL Neut % (Auto) 70.4 (45.0-80.0) % Lymph % (Auto) 17.6 (10.0-50.0) % [place] % (Auto) 8.7 (2.0-14.0) % Eos % (Auto) 2.9 (0.0-5.0) % Baso % (Auto) 0.4 (0.0-2.0) % Neut # (Auto) 5.08 (1.40-7.00) K/uL Lymph # (Auto) 1.27 (0.50-3.50) K/uL [place] # (Auto) 0.63 (0.00-1.00) K/uL Eos # (Auto) 0.21 (0.00-0.50) K/uL Baso # (Auto) 0.03 (0.00-0.20) K/uL PT 9.5 (9.5-12.0) SEC INR 0.9 APTT 24.6 (21.0-31.3) SEC D-Dimer, Quantitative 871 H (0-400) ng/mL Sodium (136-145) mmol/L Potassium (3.5-5.1) mmol/L Chloride (98-107) mmol/L Carbon Dioxide (21.0-32.0) mmol/L BUN (7-18) mg/dL Creatinine (0.51-1.17) mg/dL Est Cr Clr Drug Dosing mL/min Estimated GFR (MDRD) mL/min Glucose (74-106) mg/dL Hemoglobin A1c (4.3-5.7) % Lactic Acid (0.4-2.0) mmol/L Calcium (8.5-10.1) mg/dL Magnesium (1.8-2.4) mg/dL Total Bilirubin (0.2-1.0) mg/dL AST (15-37) U/L ALT (12-78) U/L Alkaline Phosphatase (46-116) IU/L Creatine Kinase (26-308) U/L Creatine Kinase Index (0.0-2.5) % CK-MB (CK-2) (0.00-3.60) ng/mL Troponin I (0.000-0.056) ng/mL NT-Pro-B Natriuret Pep (0-125) pg/mL Total Protein (6.4-8.2) g/dL Albumin (3.4-5.0) g/dL Triglycerides (30-150) mg/dL Cholesterol (100-200) mg/dL LDL Cholesterol, Calc (0-100) mg/dL HDL Cholesterol (40-60) mg/dL TSH, Ultra Sensitive (0.358-3.740) mIU/mL 12/18/19 12/18/19 12/18/19 Range/Units 17:43 17:43 22:10 WBC (4.0-10.2) K/uL RBC (4.33-5.41) M/uL Hgb (13.1-16.8) g/dL Hct (39.0-49.0) % MCV (84.0-98.0) fL MCH (28.2-33.3) pg MCHC (31.7-36.0) g/dL RDW (11.2-14.1) % Plt Count (150-350) K/uL Neut % (Auto) (45.0-80.0) % Lymph % (Auto) (10.0-50.0) % [place] % (Auto) (2.0-14.0) % Eos % (Auto) (0.0-5.0) % Baso % (Auto) (0.0-2.0) % Neut # (Auto) (1.40-7.00) K/uL Lymph # (Auto) (0.50-3.50) K/uL [place] # (Auto) (0.00-1.00) K/uL Eos # (Auto) (0.00-0.50) K/uL Baso # (Auto) (0.00-0.20) K/uL PT (9.5-12.0) SEC INR APTT (21.0-31.3) SEC D-Dimer, Quantitative (0-400) ng/mL Sodium 138 (136-145) mmol/L Potassium 3.4 L (3.5-5.1) mmol/L Chloride 103 (98-107) mmol/L Carbon Dioxide 26.6 (21.0-32.0) mmol/L BUN 11 (7-18) mg/dL Creatinine 0.79 (0.51-1.17) mg/dL Est Cr Clr Drug Dosing 97.41 mL/min Estimated GFR (MDRD) > 60 mL/min Glucose 123 H (74-106) mg/dL Hemoglobin A1c (4.3-5.7) % Lactic Acid 1.4 (0.4-2.0) mmol/L Calcium 8.5 (8.5-10.1) mg/dL Magnesium 2.0 (1.8-2.4) mg/dL Total Bilirubin 0.5 (0.2-1.0) mg/dL AST 23 (15-37) U/L ALT 39 (12-78) U/L Alkaline Phosphatase 80 (46-116) IU/L Creatine Kinase 131 136 (26-308) U/L Creatine Kinase Index 1.5 1.5 (0.0-2.5) % CK-MB (CK-2) 1.90 2.00 (0.00-3.60) ng/mL Troponin I 0.002 0.007 (0.000-0.056) ng/mL NT-Pro-B Natriuret Pep 739 H (0-125) pg/mL Total Protein 6.6 (6.4-8.2) g/dL Albumin 3.4 (3.4-5.0) g/dL Triglycerides (30-150) mg/dL Cholesterol (100-200) mg/dL LDL Cholesterol, Calc (0-100) mg/dL HDL Cholesterol (40-60) mg/dL TSH, Ultra Sensitive 1.232 (0.358-3.740) mIU/mL 12/19/19 12/19/19 12/19/19 Range/Units 07:20 07:20 07:20 WBC 7.4 (4.0-10.2) K/uL RBC 5.07 (4.33-5.41) M/uL Hgb 15.6 (13.1-16.8) g/dL Hct 45.1 (39.0-49.0) % MCV 89.0 (84.0-98.0) fL MCH 30.8 (28.2-33.3) pg MCHC 34.6 (31.7-36.0) g/dL RDW 12.8 (11.2-14.1) % Plt Count 201 (150-350) K/uL Neut % (Auto) 59.1 (45.0-80.0) % Lymph % (Auto) 27.6 (10.0-50.0) % [place] % (Auto) 8.2 (2.0-14.0) % Eos % (Auto) 4.6 (0.0-5.0) % Baso % (Auto) 0.5 (0.0-2.0) % Neut # (Auto) 4.39 (1.40-7.00) K/uL Lymph # (Auto) 2.05 (0.50-3.50) K/uL [place] # (Auto) 0.61 (0.00-1.00) K/uL Eos # (Auto) 0.34 (0.00-0.50) K/uL Baso # (Auto) 0.04 (0.00-0.20) K/uL PT (9.5-12.0) SEC INR APTT (21.0-31.3) SEC D-Dimer, Quantitative (0-400) ng/mL Sodium 139 (136-145) mmol/L Potassium 3.8 (3.5-5.1) mmol/L Chloride 102 (98-107) mmol/L Carbon Dioxide 30.1 (21.0-32.0) mmol/L BUN 13 (7-18) mg/dL Creatinine 0.83 (0.51-1.17) mg/dL Est Cr Clr Drug Dosing 92.71 mL/min Estimated GFR (MDRD) > 60 mL/min Glucose 104 (74-106) mg/dL Hemoglobin A1c 5.7 (4.3-5.7) % Lactic Acid (0.4-2.0) mmol/L Calcium 9.1 (8.5-10.1) mg/dL Magnesium (1.8-2.4) mg/dL Total Bilirubin 0.7 (0.2-1.0) mg/dL AST 24 (15-37) U/L ALT 42 (12-78) U/L Alkaline Phosphatase 85 (46-116) IU/L Creatine Kinase 102 (26-308) U/L Creatine Kinase Index 1.4 (0.0-2.5) % CK-MB (CK-2) 1.40 (0.00-3.60) ng/mL Troponin I 0.003 (0.000-0.056) ng/mL NT-Pro-B Natriuret Pep 621 H (0-125) pg/mL Total Protein 7.5 (6.4-8.2) g/dL Albumin 3.8 (3.4-5.0) g/dL Triglycerides 164 H (30-150) mg/dL Cholesterol 169 (100-200) mg/dL LDL Cholesterol, Calc 93 (0-100) mg/dL HDL Cholesterol 43 (40-60) mg/dL TSH, Ultra Sensitive (0.358-3.740) mIU/mL DYLAN Results - Last 24 hrs: Microbiology 12/18/19 17:30 Influenza Type A Antigen Screen - Final Nasal, Left NEGATIVE INFLUENZA A VIRUS AG REFERENCE RANGE: NEGATIVE Influenza Type B Antigen Screen - Final NEGATIVE INFLUENZA B VIRUS AG REFERENCE RANGE: NEGATIVE 12/18/19 17:30 Group A Streptococcus Rapid Screen - Final Throat NEGATIVE STREP A SCREEN REFERENCE RANGE: NEGATIVE Med Orders - Current: Current Medications Acetaminophen (Tylenol) 650 mg PO Q4H PRN PRN Reason: Pain Aspirin (Ecotrin) 325 mg PO DAILY [facility] Last Admin: 12/19/19 07:12 Dose: 325 mg Clopidogrel Bisulfate (Plavix) 75 mg PO DAILY [facility] Last Admin: 12/19/19 07:12 Dose: 75 mg Enoxaparin Sodium (Lovenox) 40 mg SUBCUT Q24H [facility] Last Admin: 12/18/19 23:52 Dose: 40 mg Lisinopril (Prinivil) 20 mg PO DAILY [facility] Last Admin: 12/19/19 07:12 Dose: 20 mg Metoprolol Tartrate (Lopressor) 50 mg PO BID [facility] Last Admin: 12/19/19 07:12 Dose: 50 mg Potassium Chloride (Klor-Con M20) 20 meq PO TID [facility] Last Admin: 12/19/19 12:45 Dose: 20 meq Sodium Chloride (Saline Flush) 10 ml FLUSH ASDIRECTED PRN PRN Reason: Keep Vein Open Sodium Chloride (Saline Flush) 10 ml FLUSH Q12HR PRN PRN Reason: Keep Vein Open Last Admin: 12/19/19 03:57 Dose: 10 ml Temazepam (Restoril) 15 mg PO BEDTIME PRN PRN Reason: Insomnia Discontinued Medications Aspirin (Aspirin) 324 mg CHEW ONETIME ONE Stop: 12/18/19 18:40 Last Admin: 12/18/19 18:47 Dose: 324 mg Diphtheria/Tetanus/Acell Pertussis (Adacel) 0.5 ml IM .ONCE ONE Stop: 12/19/19 11:01 Last Admin: 12/19/19 12:45 Dose: Not Given Famotidine (Pepcid) 40 mg IVPUSH ONETIME ONE Stop: 12/18/19 18:39 Last Admin: 12/18/19 18:51 Dose: 40 mg Famotidine (Pepcid) Confirm Administered Dose 20 mg .ROUTE .STK-MED ONE Stop: 12/18/19 18:47 Last Admin: 12/18/19 18:59 Dose: Not Given Furosemide (Lasix) 60 mg IVPUSH NOW ONE Stop: 12/18/19 18:40 Last Admin: 12/18/19 18:49 Dose: 60 mg Furosemide (Lasix) 40 mg IVPUSH Q8H [facility] Last Admin: 12/19/19 12:40 Dose: Not Given Potassium Chloride (Klor-Con M20) 40 meq PO ONETIME ONE Stop: 12/18/19 18:41 Last Admin: 12/18/19 18:49 Dose: 40 meq Ticagrelor (Brilinta) 180 mg PO ONETIME ONE Stop: 12/18/19 18:40 Last Admin: 12/18/19 18:48 Dose: 180 mg - Exam General: Reports: Alert, Oriented HEENT: Reports: Mucous Membr. Moist/[place] Neck: Reports: Supple Lungs: Reports: Clear to Auscultation Cardiovascular: Reports: Regular Rate GI/Abdominal Exam: Non-Tender Extremities: No Pedal Edema Neurological: Reports: No New Focal Deficit Psy/Mental Status: Reports: Alert, Normal Affect, Normal Mood
[2019-12-19] MEDS: Enoxaparin 40 MG/0.4 ML Syringe SUBCUT SCH (21:26)
[2019-12-20] MEDS: Potassium Chloride 20 MEQ Tab.ER PO SCH ×2 (08:17→11:49)
[2019-12-20] MEDS: Aspirin 325 MG Tab.EC PO SCH (08:17)
[2019-12-20] MEDS: Clopidogrel 75 MG Tab PO SCH (08:17)
[2019-12-20] MEDS: Lisinopril 20 MG Tab PO SCH (08:20)
[2019-12-20] MEDS: Metoprolol Tartrate 50 MG Tab PO SCH (08:20)
[2019-12-20] MEDS: Sodium Chloride 0.9% 10 ML Syringe FLUSH PRN (08:21)
[2019-12-20 12:05] VITALS: BP 143/87; PULSE 58
--- NOTE | 2019-12-20 15:21 | PCM.PN ---
- General Info Date of Service: 12/20/19 Admission Dx/Problem (Free Text): Pt ready for discharge Ride is available Lab is completed - Review of Systems Pulmonary: Reports: No Symptoms Cardiovascular: Reports: No Symptoms Gastrointestinal: Reports: No Symptoms - Patient Data Vitals - Most Recent: Last Vital Signs Temp 98.7 F 12/20/19 11:57 Pulse 58 L 12/20/19 11:57 Resp 18 12/20/19 11:57 BP 143/87 H 12/20/19 11:57 Pulse Ox 98 12/20/19 11:57 Weight - Most Recent: 210 lb 9.6 oz I&O - Last 24 Hours: Intake & Output 12/20/19 12/20/19 12/20/19 02:59 10:59 18:59 Intake Total 1190 800 Balance 1190 800 Ken Results Last 24 Hours: Microbiology 12/18/19 17:30 Quick Strep Confirmation Culture - Final Throat NO GROUP A STREP ISOLATED REFERENCE RANGE: NEGATIVE Group A Streptococcus Rapid Screen - Final NEGATIVE STREP A SCREEN REFERENCE RANGE: NEGATIVE 12/18/19 18:20 Aerobic Blood Culture - Preliminary Blood - Venous - Lab Draw NO GROWTH AFTER 1 DAY Anaerobic Blood Culture - Preliminary NO GROWTH AFTER 1 DAY 12/18/19 17:43 Aerobic Blood Culture - Preliminary Blood - Venous NO GROWTH AFTER 1 DAY Anaerobic Blood Culture - Preliminary NO GROWTH AFTER 1 DAY Med Orders - Current: Current Medications Acetaminophen (Tylenol) 650 mg PO Q4H PRN PRN Reason: Pain Aspirin (Ecotrin) 325 mg PO DAILY [facility] Last Admin: 12/20/19 08:17 Dose: 325 mg Clopidogrel Bisulfate (Plavix) 75 mg PO DAILY [facility] Last Admin: 12/20/19 08:17 Dose: 75 mg Enoxaparin Sodium (Lovenox) 40 mg SUBCUT Q24H [facility] Last Admin: 12/19/19 21:26 Dose: 40 mg Lisinopril (Prinivil) 20 mg PO DAILY [facility] Last Admin: 12/20/19 08:20 Dose: 20 mg Metoprolol Tartrate (Lopressor) 50 mg PO BID [facility] Last Admin: 12/20/19 08:20 Dose: 50 mg Potassium Chloride (Klor-Con M20) 20 meq PO TID [facility] Last Admin: 12/20/19 11:49 Dose: 20 meq Sodium Chloride (Saline Flush) 10 ml FLUSH ASDIRECTED PRN PRN Reason: Keep Vein Open Sodium Chloride (Saline Flush) 10 ml FLUSH Q12HR PRN PRN Reason: Keep Vein Open Last Admin: 12/20/19 08:21 Dose: 10 ml Temazepam (Restoril) 15 mg PO BEDTIME PRN PRN Reason: Insomnia Discontinued Medications Aspirin (Aspirin) 324 mg CHEW ONETIME ONE Stop: 12/18/19 18:40 Last Admin: 12/18/19 18:47 Dose: 324 mg Diphtheria/Tetanus/Acell Pertussis (Adacel) 0.5 ml IM .ONCE ONE Stop: 12/19/19 11:01 Last Admin: 12/19/19 12:45 Dose: Not Given Famotidine (Pepcid) 40 mg IVPUSH ONETIME ONE Stop: 12/18/19 18:39 Last Admin: 12/18/19 18:51 Dose: 40 mg Famotidine (Pepcid) Confirm Administered Dose 20 mg .ROUTE .STK-MED ONE Stop: 12/18/19 18:47 Last Admin: 12/18/19 18:59 Dose: Not Given Furosemide (Lasix) 60 mg IVPUSH NOW ONE Stop: 12/18/19 18:40 Last Admin: 12/18/19 18:49 Dose: 60 mg Furosemide (Lasix) 40 mg IVPUSH Q8H [facility] Last Admin: 12/19/19 12:40 Dose: Not Given Potassium Chloride (Klor-Con M20) 40 meq PO ONETIME ONE Stop: 12/18/19 18:41 Last Admin: 12/18/19 18:49 Dose: 40 meq Ticagrelor (Brilinta) 180 mg PO ONETIME ONE Stop: 12/18/19 18:40 Last Admin: 12/18/19 18:48 Dose: 180 mg - Exam Lungs: Clear to Auscultation Cardiovascular: Regular Rhythm Sepsis Event Note - Evaluation Sepsis Screening Result: No Definite Risk - Focused Exam Vital Signs: Vital Signs Temp Temp Pulse Pulse Resp BP BP 12/20/19 11:57 98.7 F 58 L 18 143/87 H 12/20/19 08:20 67 140/79 12/20/19 08:00 98.1 F 67 18 140/79 Pulse Ox 12/20/19 11:57 98 12/20/19 08:20 12/20/19 08:00 97 Date Exam was Performed: 12/20/19 Time Exam was Performed: 15:19 - Problem List & Annotations (1) Chest pain SNOMED Code(s): 60855104 Code(s): R07.9 - CHEST PAIN, UNSPECIFIED Status: Acute Priority: High Current Visit: Yes Onset Date: 12/18/19 Qualifiers: Chest pain type: unspecified Qualified Code(s): R07.9 - Chest pain, unspecified Annotation/Comment:: Pt had normal Venous Doppler Remained of lab and xray unremarkable - Problem List Review Problem List Initiated/Reviewed/Updated: Yes - My Orders Last 24 Hours: My Active Orders 12/20/19 08:00 Ready for Discharge [RC] PER UNIT ROUTINE - Assessment Assessment:: Imp: Chest pain - Plan Plan:: Plan: Discharge
== END 2019-12-20 16:25 | disposition home or self-care (01) | DRG 293 ==
LOC: LL.ED 17:15 → UNDOADMIN 20:50 → LL.MS 20:50
PROVIDERS: ADMIT Family Medicine; ATTEND Family Medicine
DX: I11.0 Hypertensive heart disease with heart failure (principal); I50.43 Acute on chronic combined systolic (congestive) and diastolic (congestive) heart failure; H54.7 Unspecified visual loss; I49.9 Cardiac arrhythmia, unspecified; E78.00 Pure hypercholesterolemia, unspecified; K21.9 Gastro-esophageal reflux disease without esophagitis; K76.0 Fatty (change of) liver, not elsewhere classified; N40.0 Benign prostatic hyperplasia without lower urinary tract symptoms; M19.90 Unspecified osteoarthritis, unspecified site; G89.29 Other chronic pain; M54.9 Dorsalgia, unspecified; G43.909 Migraine, unspecified, not intractable, without status migrainosus; M54.2 Cervicalgia; F41.9 Anxiety disorder, unspecified; F32.9 Major depressive disorder, single episode, unspecified; E66.9 Obesity, unspecified; J43.1 Panlobular emphysema; I44.7 Left bundle-branch block, unspecified; E87.6 Hypokalemia; I49.3 Ventricular premature depolarization; F17.210 Nicotine dependence, cigarettes, uncomplicated; Z95.2 Presence of prosthetic heart valve; Z90.49 Acquired absence of other specified parts of digestive tract; Z71.6 Tobacco abuse counseling; Z88.6 Allergy status to analgesic agent; Z88.0 Allergy status to penicillin; Z88.8 Allergy status to other drugs, medicaments and biological substances; Z79.82 Long term (current) use of aspirin; Z79.899 Other long term (current) drug therapy; Z86.718 Personal history of other venous thrombosis and embolism; Z79.01 Long term (current) use of anticoagulants; Z86.711 Personal history of pulmonary embolism; Z87.01 Personal history of pneumonia (recurrent)
CPT/HCPCS: 36415; 71046; 80053; 80061; 82550; 82553; 83036; 83605; 83735; 83880; 84443; 84484; 85025; 85379; 85610; 85730; 87040; 87081; 87430; 87804; 93005; 93970; 96374; 96375; 99285-25; A9270-GY; J1650; J1940; J3490